=== PATIENT | male | born 1960 | race Two or more races ===

== ENCOUNTER 2018-03-12 22:51 | Inpatient (IN) | payer OTHER, MEDICAID ==
[~2018-03-12] VITALS: Ht 177.8 cm; Wt 99.8 kg
[2018-03-12 23:02] VITALS: Ht 177.8 cm; Wt 99.8 kg
[2018-03-13 01:46] LABS: BASOPHIL % 0.2 % (0-2); PLATELET COUNT 240 x10^3mcL (130-400); RED CELL DISTRIBUTION WIDTH 12.3 % (11.5-14.5)
[2018-03-13 02:07] LABS: ALBUMIN 3.5 g/dL (3.4-5.0); BILIRUBIN TOTAL 0.3 mg/dL (0.20-1.00); CALCIUM 8.5 mg/dL (8.5-10.1); CREATININE SERUM 3.7 mg/dL (0.7-1.3); POTASSIUM SERUM 4.6 mmol/L (3.5-5.1); TOTAL PROTEIN, SERUM 7.4 g/dL (6.4-8.2)
[2018-03-13] MEDS ORDERED: NOR10 PO (02:34)
[2018-03-13] MEDS ORDERED: CALCITRIOL0.25 MCG PO (02:34)
[2018-03-13] MEDS ORDERED: ISOSORBIDE MONO30 MG PO (02:34)
[2018-03-13] MEDS ORDERED: COZAAR100 MG PO (02:35)
[2018-03-13] MEDS ORDERED: SIMVASTATIN10 M1 PO (02:35)
[2018-03-13] MEDS ORDERED: KAPVAY0.1 MG PO (02:35)
[2018-03-13] MEDS ORDERED: METOCLOPRAMIDE10 M2 PO (02:36)
[2018-03-13] MEDS ORDERED: HYDRALAZINE HY100 MG PO (02:37)
[2018-03-13] MEDS ORDERED: VITAMIN D50000 I4 PO (02:37)
[2018-03-13] MEDS ORDERED: TAMSULOSIN HYD0.4 M1 PO (02:37)
[2018-03-13] MEDS ORDERED: GLIPIZIDE ER10 M1 PO (02:37)
[2018-03-13] MEDS ORDERED: NATURAL IRON65 MG PO (02:38)
[2018-03-13] MEDS ORDERED: LIPI10 PO (02:38)
[2018-03-13] MEDS ORDERED: CHOLEST OFF450 MG (02:38)
[2018-03-13] MEDS ORDERED: LANTUS SOLOS100 U/M1 SC (02:40)
[2018-03-13] MEDS ORDERED: LEVOTHYROXIN0.125 M2 PO (02:41)
[2018-03-13] MEDS ORDERED: TRAMADOL HCL50 MG (02:41)
[2018-03-13 03:52] VITALS: BP 160/63
[2018-03-13 04:07] LABS: T3 TOTAL 0.6 ng/mL
[2018-03-13 04:08] LABS: PHOSPHOROUS 5.4 mg/dL (2.5-4.9)
[2018-03-13 04:09] LABS: FREE T4 1.54 ng/dL (0.76-1.46); FREE THYROXINE INDEX 3.4 ug/dL (1.4-4.5)
[2018-03-13 05:30] LABS: microscopic required? YES; urine erythrocyte NEGATIVE (NEGATIVE)
[2018-03-13 06:03] LABS: AMPHETAMINE QUAL UR NONE DETECTED (NEG <=1000)
[2018-03-13 06:11] LABS: BASOPHIL % 0.2 % (0-2); PLATELET COUNT 202 x10^3mcL (130-400); RED CELL DISTRIBUTION WIDTH 13.3 % (11.5-14.5)
[2018-03-13 06:35] LABS: CALCIUM 8.2 mg/dL (8.5-10.1); CARBON DIOXIDE 17.7 mmol/L (21-32); CREATININE SERUM 3.4 mg/dL (0.7-1.3); POTASSIUM SERUM 4.8 mmol/L (3.5-5.1)
[2018-03-13 09:22] VITALS: BP 163/65
[2018-03-13 12:14] VITALS: BP 164/69
[2018-03-13 17:05] VITALS: BP 157/69
[2018-03-13 20:37] VITALS: BP 149/62
[2018-03-14 05:30] VITALS: BP 140/59
[2018-03-14 06:33] LABS: BASOPHIL % 0.3 % (0-2); PLATELET COUNT 211 x10^3mcL (130-400); RED CELL DISTRIBUTION WIDTH 13.3 % (11.5-14.5)
[2018-03-14 07:06] LABS: CALCIUM 8.3 mg/dL (8.5-10.1); CARBON DIOXIDE 19.8 mmol/L (21-32); CREATININE SERUM 2.6 mg/dL (0.7-1.3); PHOSPHOROUS 4.2 mg/dL (2.5-4.9); POTASSIUM SERUM 4.7 mmol/L (3.5-5.1)
[2018-03-14 09:24] VITALS: BP 158/61
[2018-03-14 10:46] LABS: RED BLOOD CELLS 2.8 M/mm3 (4.52-5.90)
[2018-03-14 10:47] LABS: IRON 55 ug/dL (65-170)
[2018-03-14 10:55] LABS: TOTAL IRON BINDING CAPACITY 183 ug/dL (250-450)
[2018-03-14 12:44] VITALS: BP 141/54
[2018-03-14 16:31] VITALS: BP 125/60
[2018-03-14 20:23] VITALS: BP 164/65
[2018-03-15 05:49] VITALS: BP 155/43
[2018-03-15 07:49] LABS: BASOPHIL % 0.8 % (0-2); PLATELET COUNT 228 x10^3mcL (130-400); RED CELL DISTRIBUTION WIDTH 13.9 % (11.5-14.5)
[2018-03-15 08:03] LABS: CALCIUM 8.4 mg/dL (8.5-10.1); CARBON DIOXIDE 22.7 mmol/L (21-32); CREATININE SERUM 2.2 mg/dL (0.7-1.3)
[2018-03-15 10:07] VITALS: BP 177/61
[2018-03-15 12:52] VITALS: BP 155/58
[2018-03-15] MEDS ORDERED: COREG12.5 MG PO (13:04)
[2018-03-15] MEDS ORDERED: FUROSEMIDE80 MG PO (13:30)
[2018-03-15] MEDS ORDERED: FUROSEMIDE40 MG PO (13:30)
[2018-03-15] MEDS ORDERED: HYDROCHLOROTHIA25 MG PO (13:31)
== END 2018-03-15 13:50 | disposition home or self-care (01) | DRG 391 ==
LOC: ED 22:51 → DU 03-13 03:12
PROVIDERS: Emergency Medicine; Family Medicine
DX: A08.4 Viral intestinal infection, unspecified (principal); N17.0 Acute kidney failure with tubular necrosis; E87.1 Hypo-osmolality and hyponatremia; T50.2X5A Adverse effect of carbonic-anhydrase inhibitors, benzothiadiazides and other diuretics, initial encounter; E86.0 Dehydration; E11.43 Type 2 diabetes mellitus with diabetic autonomic (poly)neuropathy; K31.84 Gastroparesis; E03.9 Hypothyroidism, unspecified; T50.1X5A Adverse effect of loop [high-ceiling] diuretics, initial encounter; Y92.89 Other specified places as the place of occurrence of the external cause; E83.39 Other disorders of phosphorus metabolism; D64.9 Anemia, unspecified; E78.1 Pure hyperglyceridemia; E66.9 Obesity, unspecified; E78.5 Hyperlipidemia, unspecified; I12.9 Hypertensive chronic kidney disease with stage 1 through stage 4 chronic kidney disease, or unspecified chronic kidney disease; N18.9 Chronic kidney disease, unspecified; E11.21 Type 2 diabetes mellitus with diabetic nephropathy; I70.202 Unspecified atherosclerosis of native arteries of extremities, left leg; I70.291 Other atherosclerosis of native arteries of extremities, right leg; Z89.421 Acquired absence of other right toe(s); Z68.30 Body mass index [BMI] 30.0-30.9, adult
CPT/HCPCS: 82962; 83880; 84439; J0780; J1815; J2405; J2765; J3490; J7030; Q0092

== ENCOUNTER 2018-09-08 14:04 | Emergency (ER) | payer OTHER ==
[~2018-09-08] VITALS: Ht 177.8 cm; Wt 91.2 kg
[~2018-09-08 14:04] MED LIST: BAY NG; BRILINTA90 M1 NG; CALCITRIOL0.25 MCG PO; CHOLEST OFF450 MG; COREG12.5 MG PO; COZAAR100 MG PO; FERRLECIT62.5 MG/5 IV; FUROSEMIDE40 MG PO; FUROSEMIDE80 MG PO; GLIPIZIDE ER10 M1 PO; HYDRALAZINE HY100 MG PO; HYDROCHLOROTHIA25 MG PO; ISOSORBIDE MONO30 MG PO; KAPVAY0.1 MG PO; L40I IV; LANTUS SOLOS100 U/M1 SC; LASIX80 MG PO; LEVOTHYROXIN0.125 M2 PO; LIPI10 PO; METOCLOPRAMIDE10 M2 PO; NATURAL IRON65 MG PO; NEP PO; NOR10 PO; PHOS PO; PRO4I IV; SIMVASTATIN10 M1 PO; TAMSULOSIN HYD0.4 M1 PO; TRAMADOL HCL50 MG; VELTASSA25.2 GM PO; VITAMIN D50000 I4 PO; ZOS2PM IV
[2018-09-08 14:07] VITALS: Ht 177.8 cm; Wt 91.2 kg
[2018-09-08 15:39] LABS: BASOPHIL % 0.3 % (0-2); PLATELET COUNT 253 x10^3mcL (130-400)
[2018-09-08 15:40] LABS: RED CELL DISTRIBUTION WIDTH 18.8 % (11.5-14.5)
[2018-09-08 15:46] LABS: ALBUMIN 3.7 g/dL (3.4-5.0); BILIRUBIN TOTAL 0.3 mg/dL (0.20-1.00); CALCIUM 9.5 mg/dL (8.5-10.1); CARBON DIOXIDE 29.5 mmol/L (21-32); CREATININE SERUM 3.8 mg/dL (0.7-1.3); MAGNESIUM 2.4 mg/dL (1.8-2.4); POTASSIUM SERUM 4.7 mmol/L (3.5-5.1)
[2018-09-08 15:48] LABS: TOTAL PROTEIN, SERUM 8.6 g/dL (6.4-8.2)
[2018-09-08 18:01] VITALS: BP 180/73
== END 2018-09-08 18:00 | disposition home or self-care (01) ==
LOC: ED 14:04
PROVIDERS: Emergency Medicine
DX: E11.65 Type 2 diabetes mellitus with hyperglycemia (principal); E11.22 Type 2 diabetes mellitus with diabetic chronic kidney disease; I12.9 Hypertensive chronic kidney disease with stage 1 through stage 4 chronic kidney disease, or unspecified chronic kidney disease; N18.9 Chronic kidney disease, unspecified; E78.00 Pure hypercholesterolemia, unspecified; H11.32 Conjunctival hemorrhage, left eye
CPT/HCPCS: 36415; 82962; Q0092